=== PATIENT | male | born 1990 | race Caucasian/White ===

== ENCOUNTER 2016-12-16 14:10 | Emergency (ER) | payer SELFPAY ==
--- NOTE | 2016-12-16 15:22 | XRay Report ---
RIGHT HAND RADIOGRAPHS INDICATION: Wound. COMPARISON: None similar. FINDINGS: AP and lateral right hand radiographs demonstrate normal bones, joints and soft tissues. CONCLUSION: No acute radiographic abnormality. Thank you for the opportunity to participate in this patient's care.
[2016-12-16] MEDS ORDERED: MOTRIN PO ONE (18:32)
[2016-12-16] MEDS ORDERED: TRIPLE ANTIBIOTIC TP ONE (18:32)
[2016-12-16] MEDS ORDERED: BOOSTRIX IM ONE (18:32)
--- NOTE | 2016-12-16 18:37 | Emergency Department Report ---
ED Laceration HPI - HPI Chief Complaint: Wound/Laceration Stated Complaint: LAC R HAND Time Seen by Provider: 12/16/16 18:32 Severity: moderate Tetanus Status: Not up to Date Laceration Symptoms: Yes Pain, No Foreign Body Sensation, No Numbness, No Weakness Other History: 26-year-old male past medical history none presents with laceration to right hand on the dorsal aspect of hand and web space between thumb and index finger. Patient denies any other injuries. Patient states it happened accidentally while he was handling a knife. Patient is unsure of his tetanus status visible straight laceration approximately 6 cm in length and web space. Covered with gauze. States it occurred a few hours ago. ED Review of Systems ROS: Stated complaint: LAC R HAND Other details as noted in HPI Constitutional: denies: chills, fever Eyes: denies: eye pain, eye discharge, vision change ENT: denies: ear pain, throat pain Respiratory: denies: cough, shortness of breath, wheezing Cardiovascular: denies: chest pain, palpitations Endocrine: no symptoms reported Gastrointestinal: denies: abdominal pain, nausea, diarrhea Genitourinary: denies: urgency, dysuria Musculoskeletal: denies: back pain, joint swelling, arthralgia Skin: denies: rash, lesions Neurological: denies: headache, weakness, paresthesias Psychiatric: denies: anxiety, depression Hematological/Lymphatic: denies: easy bleeding, easy bruising ED Past Medical Hx - Past Medical History Previous Medical History?: No - Surgical History Past Surgical History?: No - Social History Smoking Status: Never Smoker Substance Use Type: None - Medications Home Medications: Home Medications Medication Instructions Recorded Confirmed Last Taken Type Cephalexin [Keflex] 500 mg PO Q12HR #10 cap 12/16/16 Unknown Rx Ibuprofen [Motrin] 600 mg PO Q8H PRN #25 tablet 12/16/16 Unknown Rx Laceration Physical Exam - Exam General: Vital signs noted. No distress. Alert and acting appropriately. Wound Length (cm): 6 Laceration Exam: Yes Normal Distal CMS, No Foreign Body, No Exposed Tendon, Vessel, or Nerve, No Tendon Injury ED Course Vital Signs 12/16/16 14:31 Temperature 99.1 F Pulse Rate 83 Respiratory 18 Rate Blood Pressure 121/80 O2 Sat by Pulse 100 Oximetry - Laceration /Wound Repair Right Hand Wound Location: upper extremity (right hand) Wound Length (cm): 5 Wound's Depth, Shape: superficial Irrigated w/ Saline (ccs): 500 Betadine Prep?: Yes Anesthesia: Lidocaine w/ Epi Volume Anesthetic (ccs): 5 Wound Debrided: minimal Wound Repaired With: sutures Suture Size/Type: 4:0, nylon Number of Sutures: 8 Layer Closure?: Yes Deep Layer Suture Size/Type: 4:0, 3:0, chromic Number Deep Layer Sutures: 3 Sterile Dressing Applied?: Yes (triple abx w/ sterile gauze) ED Medical Decision Making - Medical Decision Making A/P: Right hand laceration 1- sutures to be removed in 8-10 days. good closure achieved with sutures 2- tetanus updated today 3- Motrin when necessary, triple antibiotic ointment 4- pt advised to return to the ED for any fevers chills pus drainage erythema at site of laceration Critical care attestation.: If time is entered above; I have spent that time in minutes in the direct care of this critically ill patient, excluding procedure time. ED Disposition Clinical Impression: Laceration of right hand Qualifiers: Encounter type: initial encounter Foreign body presence: without foreign body Qualified Code(s): S61.411A - Laceration without foreign body of right hand, initial encounter Disposition: DC-01 TO HOME OR SELFCARE Is pt being admited?: No Does the pt Need Aspirin: No Condition: Stable Instructions: Suture Care (ED), Laceration (ED) Additional Instructions: Sutures to be removed in 8-10 days Prescriptions: Cephalexin [Keflex] 500 mg PO Q12HR #10 cap Ibuprofen [Motrin] 600 mg PO Q8H PRN #25 tablet PRN Reason: Pain Referrals: [facility] [Outside] - 3-5 Days Time of Disposition: 18:39
[2016-12-16 20:15] VITALS: BP 118/77
== END 2016-12-16 20:13 | disposition home or self-care (01) ==
LOC: ED 14:10
DX: S61.411A Laceration without foreign body of right hand, initial encounter (principal); W26.0XXA Contact with knife, initial encounter; Y93.89 Activity, other specified; Y99.9 Unspecified external cause status; Y92.89 Other specified places as the place of occurrence of the external cause
CPT/HCPCS: 90471; 90715; A6250